=== PATIENT | male | born 1960 | race Hispanic/Latino ===

== ENCOUNTER 2023-02-01 19:32 | Inpatient (IN) | payer OTHER ==
[~2023-02-01] VITALS: Ht 177.8 cm; Wt 141.3 kg
[2023-02-01] MEDS ORDERED: DIGOXIN INJ 0.25 MG/ML 2 ML AMP IV STA (19:48)
[2023-02-01] MEDS ORDERED: METOPROLOL TARTRATE INJ 1 MG/ML VIAL IV STA (19:48)
[2023-02-01] MEDS ORDERED: DILTIAZEM HCL 5 MG/ML 5 ML VIAL IV STA ×2 (19:48→22:34)
[2023-02-01] MEDS ORDERED: SODIUM CHLORIDE 0.9% 1000ML 1,000 ML IV STA (19:50)
[2023-02-01 20:06] LABS: BASOPHILS % 0.7 % (0.0-1.0); EOSINOPHILS # (AUTO) 0.1 (0.0-0.4); EOSINOPHILS % 1.7 % (0.0-6.0); HEMATOCRIT 42.3 % (38.2-49.6); HEMOGLOBIN 13.2 g/dL (14.0-18.0); LYMPHOCYTES # (AUTO) 1.1 (1.0-3.2); LYMPHOCYTES % 18.4 % (18.0-39.1); MEAN CORPUSCULAR HEMOGLOBIN 30.3 pg (28-32); MEAN CORPUSCULAR HGB CONC 31.2 g/dL (31-35); MEAN CORPUSCULAR VOLUME 97.2 fL (81-99); MONOCYTES # (AUTO) 0.7 (0.2-0.8); MONOCYTES % 10.9 % (4.4-11.3); PLATELET COUNT 113 x10e3/uL (140-360); RED BLOOD COUNT 4.35 x10e6/uL (4.3-5.7); RED CELL DISTRIBUTION WIDTH 13.4 % (11.7-14.4)
[2023-02-01 20:14] LABS: AMPHETAMINES SCREEN,URINE NEGATIVE (NEGATIVE); BENZODIAZEPINES SCREEN,URINE NEGATIVE (NEGATIVE); PHENCYCLIDINE SCREEN,URINE NEGATIVE (NEGATIVE)
[2023-02-01 20:27] LABS: ALBUMIN 3.8 g/dL (3.5-5.0); ALBUMIN/GLOBULIN RATIO 1.2 (0.8-2.0); ANION GAP 12.9 mmol/L (8-16); CALCIUM 8.9 mg/dL (8.4-10.2); CREATININE, SERUM 0.96 mg/dL (0.72-1.25); POTASSIUM 3.9 mmol/L (3.5-5.1)
[2023-02-01 20:33] LABS: CREATINE KINASE MB 4.7 ng/mL (0-5.0)
[2023-02-01] MEDS ORDERED: IOPAMIDOL 370 MG/ML 100 ML INFUS..BTL INJ ONE (20:34)
[2023-02-01] MEDS ORDERED: SODIUM CHLORIDE FLUSH 10 ML SYR INJ PRN (22:00)
[2023-02-01] MEDS ORDERED: Morphine 4mg INJECTION 4 MG/ML INJ IV PRN (22:00)
[2023-02-01 23:30] VITALS: PULSE 121; RESP 20; O2SAT 96
[2023-02-02] VITALS (34 sets, daily range): BP systolic 96–155; BP diastolic 69–120; PULSE 22–163; RESP 14–27; TEMP 97.5–98.5; O2SAT 84–95
[2023-02-02 05:05] LABS: BASOPHILS % 0.6 % (0.0-1.0); EOSINOPHILS # (AUTO) 0.1 (0.0-0.4); EOSINOPHILS % 1.9 % (0.0-6.0); HEMATOCRIT 39.3 % (38.2-49.6); HEMOGLOBIN 12.3 g/dL (14.0-18.0); LYMPHOCYTES % 19.1 % (18.0-39.1); MEAN CORPUSCULAR HEMOGLOBIN 30.4 pg (28-32); MEAN CORPUSCULAR HGB CONC 31.3 g/dL (31-35); MONOCYTES # (AUTO) 0.6 (0.2-0.8); MONOCYTES % 11.1 % (4.4-11.3); NEUTROPHILS # (AUTO) 3.6 (2.1-6.9); NEUTROPHILS % 67.1 % (38.7-80.0); PLATELET COUNT 109 x10e3/uL (140-360); RED BLOOD COUNT 4.05 x10e6/uL (4.3-5.7); RED CELL DISTRIBUTION WIDTH 13.4 % (11.7-14.4)
[2023-02-02] MEDS ORDERED: DILTIAZEM HCL IV 5MG/ML 25 ML VIAL ONE (05:16)
[2023-02-02] MEDS ORDERED: SODIUM CHLORIDE 0.9% 100 ML ONE (05:17)
[2023-02-02] MEDS: DILTIAZEM HCL 125 ML IV SCH ×2 (05:21→17:28)
[2023-02-02 05:32] LABS: CREATINE KINASE MB 3.4 ng/mL (0-5.0)
[2023-02-02] MEDS ORDERED: ACETAMINOPHEN 325 MG TAB PO STA (05:57)
[2023-02-02 06:07] LABS: ALBUMIN 3.5 g/dL (3.5-5.0); ALBUMIN/GLOBULIN RATIO 1.3 (0.8-2.0); ANION GAP 10.9 mmol/L (8-16); CALCIUM 8.7 mg/dL (8.4-10.2); CREATININE, SERUM 0.79 mg/dL (0.72-1.25); POTASSIUM 3.9 mmol/L (3.5-5.1)
[2023-02-02] MEDS: ONDANSETRON HCL INJ 2MG/ML 2ML 2 MG/ML VIAL IV PRN (06:09)
[2023-02-02 07:39] LABS: FERRITIN 86.47 ng/mL (21.81-274.66); THYROID STIMULATING HORMONE 0.941 uIU/mL (0.350-4.940)
[2023-02-02] MEDS ORDERED: BENICAR20 MG PO (08:22)
[2023-02-02] MEDS ORDERED: FAMOTIDINE20 MG PO (08:22)
[2023-02-02] MEDS ORDERED: INDOMETHACIN50 MG PO (08:22)
[2023-02-02] MEDS ORDERED: AMLODIPINE BESYL5 MG PO (08:22)
[2023-02-02] MEDS ORDERED: ALTOPREV40 MG PO (08:22)
[2023-02-02] MEDS ORDERED: MELOXICAM15 MG PO (08:22)
[2023-02-02] MEDS: DOCUSATE SODIUM 100 MG CAP PO SCH (09:40)
[2023-02-02] MEDS: SENNOSIDES 8.6 MG TAB PO SCH (09:40)
[2023-02-02 10:07] LABS: FREE T4 (FREE THYROXINE) 1.05 ng/dL (0.8-1.8); THYROID STIMULATING HORMONE 0.927 uIU/mL (0.350-4.940)
[2023-02-02] MEDS ORDERED: DIGOXIN 0.25 MG TAB PO ONE (10:15)
[2023-02-02] MEDS ORDERED: DIGOXIN 0.125 MG TAB ONE (10:20)
[2023-02-02] MEDS: AMIODARONE HCL 200 MG TAB PO SCH ×3 (10:30→20:03)
[2023-02-02] MEDS: ENOXAPARIN SODIUM INJ 100 MG/ML SYR SC SCH ×2 (10:30→20:47)
[2023-02-02] MEDS: METOPROLOL TARTRATE 50 MG TAB PO SCH ×3 (12:28→23:48)
[2023-02-02] MEDS: ACETAMINOPHEN 325 MG TAB PO PRN ×2 (13:04→20:03)
[2023-02-02 15:03] LABS: CREATINE KINASE 119 IU/L (30-200)
[2023-02-02] MEDS ORDERED: CYANOCOBALAMIN INJ 1,000 MCG/ML VIAL IM ONE (19:25)
[2023-02-02] MEDS: IRON SUCROSE 100 MG in SODIUM CHLORIDE 0.9% 100 ML IV SCH (19:46)
[2023-02-03] VITALS (33 sets, daily range): BP systolic 92–153; BP diastolic 68–100; PULSE 25–161; RESP 12–29; TEMP 97.2–98.3; O2SAT 87–96
[2023-02-03] MEDS ORDERED: BISACODYL 5 MG TAB EC PO ONE ×2 (02:30→03:00)
[2023-02-03] MEDS: ONDANSETRON HCL INJ 2MG/ML 2ML 2 MG/ML VIAL IV PRN ×2 (04:35→12:13)
[2023-02-03] MEDS: METOPROLOL TARTRATE 50 MG TAB PO SCH ×3 (05:54→20:04)
[2023-02-03 06:38] LABS: BASOPHILS % 0.4 % (0.0-1.0); EOSINOPHILS % 0.1 % (0.0-6.0); HEMATOCRIT 42.4 % (38.2-49.6); LYMPHOCYTES # (AUTO) 0.9 (1.0-3.2); LYMPHOCYTES % 10.2 % (18.0-39.1); MEAN CORPUSCULAR HEMOGLOBIN 30.4 pg (28-32); MEAN CORPUSCULAR HGB CONC 30.7 g/dL (31-35); MEAN CORPUSCULAR VOLUME 99.3 fL (81-99); MONOCYTES % 11.7 % (4.4-11.3); NEUTROPHILS # (AUTO) 6.9 (2.1-6.9); NEUTROPHILS % 77.3 % (38.7-80.0); PLATELET COUNT 135 x10e3/uL (140-360); RED BLOOD COUNT 4.27 x10e6/uL (4.3-5.7); RED CELL DISTRIBUTION WIDTH 13.6 % (11.7-14.4)
[2023-02-03 06:55] LABS: INR 1.17; PROTHROMBIN TIME 15.4 seconds (11.9-14.5)
[2023-02-03 07:02] LABS: ALBUMIN 3.7 g/dL (3.5-5.0); ALBUMIN/GLOBULIN RATIO 1.1 (0.8-2.0); ANION GAP 11.9 mmol/L (8-16); CALCIUM 8.9 mg/dL (8.4-10.2); CREATININE, SERUM 1.18 mg/dL (0.72-1.25); MAGNESIUM 2.3 MG/DL (1.3-2.1); POTASSIUM 4.9 mmol/L (3.5-5.1)
[2023-02-03 09:03] LABS: LYMPHOCYTES % (MANUAL) 9 % (19-48); MONOCYTES % (MANUAL) 15 % (3.4-9.0); NEUTROPHILS % (MANUAL) 73 % (40-74)
[2023-02-03 09:04] LABS: PLATELET ESTIMATE SLIGHTLY DECREASED; PLATELET MORPHOLOGY COMMENT NORMAL; RBC MORPHOLOGY COMMENT NORMAL
[2023-02-03] MEDS: SENNOSIDES 8.6 MG TAB PO SCH (09:32)
[2023-02-03] MEDS: FAMOTIDINE 20 MG TAB PO SCH (09:32)
[2023-02-03] MEDS: ENOXAPARIN SODIUM INJ 100 MG/ML SYR SC SCH ×2 (09:33→21:40)
[2023-02-03] MEDS: DOCUSATE SODIUM 100 MG CAP PO SCH (09:33)
[2023-02-03] MEDS: AMIODARONE HCL 200 MG TAB PO SCH ×3 (09:33→21:40)
[2023-02-03] MEDS: CYANOCOBALAMIN INJ 1,000 MCG/ML VIAL IM SCH (09:33)
[2023-02-03] MEDS: MUPIROCIN 2% OINT 22 GM TUBE TOP SCH ×2 (11:29→16:34)
[2023-02-03] MEDS: IRON SUCROSE 100 MG in SODIUM CHLORIDE 0.9% 100 ML IV SCH (11:31)
[2023-02-03] MEDS ORDERED: CITRATE OF MAGNESIA 300ML BOTTLE PO ONE (12:00)
[2023-02-03] MEDS ORDERED: AMLODIPINE BESY10 MG PO (13:56)
[2023-02-04] VITALS (18 sets, daily range): BP systolic 95–142; BP diastolic 71–112; PULSE 78–139; RESP 16–28; TEMP 97–98.8; O2SAT 92–97
[2023-02-04] MEDS: METOPROLOL TARTRATE 50 MG TAB PO SCH ×3 (00:16→17:33)
[2023-02-04 06:52] LABS: BASOPHILS % 0.5 % (0.0-1.0); EOSINOPHILS % 0.1 % (0.0-6.0); HEMATOCRIT 42.3 % (38.2-49.6); HEMOGLOBIN 13.1 g/dL (14.0-18.0); LYMPHOCYTES # (AUTO) 0.7 (1.0-3.2); LYMPHOCYTES % 8.4 % (18.0-39.1); MEAN CORPUSCULAR HEMOGLOBIN 30.8 pg (28-32); MEAN CORPUSCULAR VOLUME 99.5 fL (81-99); MONOCYTES # (AUTO) 1.1 (0.2-0.8); NEUTROPHILS % 78.7 % (38.7-80.0); PLATELET COUNT 132 x10e3/uL (140-360); RED BLOOD COUNT 4.25 x10e6/uL (4.3-5.7); RED CELL DISTRIBUTION WIDTH 13.2 % (11.7-14.4)
[2023-02-04 07:19] LABS: ALBUMIN 3.7 g/dL (3.5-5.0); ALBUMIN/GLOBULIN RATIO 1.1 (0.8-2.0); ANION GAP 12.6 mmol/L (8-16); CALCIUM 8.9 mg/dL (8.4-10.2); CREATININE, SERUM 1.04 mg/dL (0.72-1.25); MAGNESIUM 2.6 MG/DL (1.3-2.1); POTASSIUM 4.6 mmol/L (3.5-5.1)
[2023-02-04] MEDS: SENNOSIDES 8.6 MG TAB PO SCH (08:07)
[2023-02-04] MEDS: FAMOTIDINE 20 MG TAB PO SCH (08:07)
[2023-02-04] MEDS: DOCUSATE SODIUM 100 MG CAP PO SCH (08:07)
[2023-02-04] MEDS: CYANOCOBALAMIN INJ 1,000 MCG/ML VIAL IM SCH (08:07)
[2023-02-04] MEDS: AMIODARONE HCL 200 MG TAB PO SCH ×3 (08:07→20:59)
[2023-02-04] MEDS: MUPIROCIN 2% OINT 22 GM TUBE TOP SCH ×2 (08:07→17:33)
[2023-02-04] MEDS: ENOXAPARIN SODIUM INJ 100 MG/ML SYR SC SCH ×2 (08:07→20:59)
[2023-02-04] MEDS: IRON SUCROSE 100 MG in SODIUM CHLORIDE 0.9% 100 ML IV SCH (09:49)
[2023-02-04 09:51] LABS: LYMPHOCYTES % (MANUAL) 11 % (19-48); MONOCYTES % (MANUAL) 11 % (3.4-9.0); NEUTROPHILS % (MANUAL) 76 % (40-74); PLATELET ESTIMATE SLIGHTLY DECREASED
[2023-02-04 09:52] LABS: PLATELET MORPHOLOGY COMMENT NORMAL; RBC MORPHOLOGY COMMENT NORMAL
[2023-02-04] MEDS: FUROSEMIDE 40 MG TAB PO SCH (15:07)
[2023-02-05 01:04] VITALS: BP 109/80; PULSE 112; RESP 20; TEMP 98.1; O2SAT 92
[2023-02-05] MEDS ORDERED: MESALAMINE 400 MG CAP PO STA (01:14)
[2023-02-05 05:39] VITALS: BP 124/92; PULSE 95; RESP 20; TEMP 97.3; O2SAT 94
[2023-02-05 05:55] LABS: BASOPHILS % 0.6 % (0.0-1.0); EOSINOPHILS # (AUTO) 0.1 (0.0-0.4); EOSINOPHILS % 0.7 % (0.0-6.0); HEMATOCRIT 38.2 % (38.2-49.6); HEMOGLOBIN 11.9 g/dL (14.0-18.0); MEAN CORPUSCULAR HEMOGLOBIN 30.3 pg (28-32); MEAN CORPUSCULAR HGB CONC 31.2 g/dL (31-35); MEAN CORPUSCULAR VOLUME 97.2 fL (81-99); MONOCYTES % 14.7 % (4.4-11.3); NEUTROPHILS # (AUTO) 4.8 (2.1-6.9); NEUTROPHILS % 69.7 % (38.7-80.0); PLATELET COUNT 123 x10e3/uL (140-360); RED BLOOD COUNT 3.93 x10e6/uL (4.3-5.7); RED CELL DISTRIBUTION WIDTH 13.3 % (11.7-14.4)
[2023-02-05 06:16] LABS: ALBUMIN 3.5 g/dL (3.5-5.0); ALBUMIN/GLOBULIN RATIO 1.2 (0.8-2.0); CALCIUM 8.6 mg/dL (8.4-10.2); CREATININE, SERUM 0.86 mg/dL (0.72-1.25); MAGNESIUM 2.1 MG/DL (1.3-2.1)
[2023-02-05] MEDS ORDERED: AMIODARONE HCL200 MG PO (08:29)
[2023-02-05] MEDS ORDERED: ELIQUIS5 MG PO (08:29)
[2023-02-05] MEDS ORDERED: FEROSUL325 MG PO (08:29)
[2023-02-05] MEDS ORDERED: METOPROLOL TAR100 MG PO (08:29)
[2023-02-05] MEDS ORDERED: DIGOXIN125 MCG PO (08:29)
[2023-02-05] MEDS ORDERED: POTASSIUM CHLO10 ME1 PO (08:29)
[2023-02-05] MEDS ORDERED: MESALAMINE1.2 GM PO (08:29)
[2023-02-05 08:59] VITALS: BP 140/90; PULSE 80; RESP 20; TEMP 98.7; O2SAT 97
[2023-02-05] MEDS ORDERED: MESALAMINE 400 MG CAP PO SCH (09:00)
[2023-02-05] MEDS: SENNOSIDES 8.6 MG TAB PO SCH (09:30)
[2023-02-05] MEDS: DOCUSATE SODIUM 100 MG CAP PO SCH (09:30)
[2023-02-05] MEDS: AMIODARONE HCL 200 MG TAB PO SCH (09:31)
[2023-02-05] MEDS: FUROSEMIDE 40 MG TAB PO SCH (09:31)
[2023-02-05] MEDS: METOPROLOL TARTRATE 50 MG TAB PO SCH (09:32)
[2023-02-05] MEDS: FAMOTIDINE 20 MG TAB PO SCH (09:33)
[2023-02-05] MEDS: CYANOCOBALAMIN INJ 1,000 MCG/ML VIAL IM SCH (09:33)
[2023-02-05] MEDS: MUPIROCIN 2% OINT 22 GM TUBE TOP SCH (09:36)
[2023-02-05] MEDS: IRON SUCROSE 100 MG in SODIUM CHLORIDE 0.9% 100 ML IV SCH (09:36)
[2023-02-05] MEDS: ENOXAPARIN SODIUM INJ 100 MG/ML SYR SC SCH (09:37)
== END 2023-02-05 11:42 | disposition home or self-care (01) | DRG 308 ==
LOC: ER 19:37 → ERHOLD 21:59 → ICU 02-02 12:59 → MED/SURG2 02-04 20:16
PROVIDERS: ADMIT Internal Medicine; ATTEND Internal Medicine
DX: I48.91 Unspecified atrial fibrillation (principal); J96.01 Acute respiratory failure with hypoxia; R18.8 Other ascites; I50.32 Chronic diastolic (congestive) heart failure; Z68.41 Body mass index [BMI] 40.0-44.9, adult; K51.90 Ulcerative colitis, unspecified, without complications; J90 Pleural effusion, not elsewhere classified; K74.60 Unspecified cirrhosis of liver; I11.0 Hypertensive heart disease with heart failure; E66.01 Morbid (severe) obesity due to excess calories; D69.6 Thrombocytopenia, unspecified; E87.70 Fluid overload, unspecified; R00.0 Tachycardia, unspecified; I45.10 Unspecified right bundle-branch block; D50.9 Iron deficiency anemia, unspecified; G47.33 Obstructive sleep apnea (adult) (pediatric); K59.09 Other constipation; M17.0 Bilateral primary osteoarthritis of knee; Z20.822 Contact with and (suspected) exposure to COVID-19; Z59.6 Low income; Z87.891 Personal history of nicotine dependence; Z90.49 Acquired absence of other specified parts of digestive tract; Z20.5 Contact with and (suspected) exposure to viral hepatitis
CPT/HCPCS: 36415; 71260; 74177; 76700; 80053; 80162; 80307; 82550; 82553; 82607; 82728; 83540; 83690; 83735; 83880; 84439; 84443; 84466; 84484; 85025; 85610; 86140; 86256; 86671; 93005; 93306; 94799; 99252; 99284; J1160; J1650; J1756; J2270; J2405; J3420; J7030; J7050; Q9967